=== PATIENT | female | born 1980 | race Caucasian/White ===

== ENCOUNTER 2018-10-13 07:01 | Day surgery (SDC) | payer BC ==
--- NOTE | 2018-10-05 07:02 | HP ---
CC: Dr. Matt * PREOPERATIVE HISTORY AND PHYSICAL: DATE OF ADMISSION/SURGERY: 10/13/18 This patient is scheduled for same-day surgery admission by Dr. Alegria on Tuesday , 10/13/18. DATE OF PREOPERATIVE HISTORY AND PHYSICAL EXAMINATION: 10/04/18. ATTENDING SURGEON: Dr. Amy Alegria * (dictated by Catherine Clement NP). CHIEF COMPLAINT: Left breast mass. HISTORY OF PRESENT ILLNESS: The patient is a 38-year-old female, who had her initial consultation with Dr. Alegria, 06/13/18, after she was referred by her primary care provider, Dr. Matt, who thought there might be a lump in the left breast. The patient had not noticed any breast changes at that time, but reported pain in her left breast ever since. She had excision of 2 benign lesions in 2006. The pathology on the previous excisions were consistent with fibroadenoma and fibrocystic change. She underwent mammogram 06/19/18, which revealed a solid nodule in the left breast; she also underwent ultrasound- guided biopsy of the left breast lesion at the 6 o'clock position in July 2018 with findings suggestive of Phyllodes tumor and therefore surgical excision with margins was recommended. She denies any change in the shape or texture of the left breast and she denies any nipple discharge. She has never had radiation to the chest. There is no family history of breast or ovarian cancer. She was on control pills about 10 years ago. She was aged 11 with her first menstrual period and her last menstrual period started 09/24/18. Dr. Alegria has reviewed all of the findings with the patient and has recommended needle localization excision of the left breast lesion as a same- day surgery procedure. She described the nature of the surgical procedure, the rationale for the procedure, the relevant risks and benefits, and today I reviewed the typical postoperative care and recovery. The patient has had a chance to ask questions and stated that she understands the information and is satisfied with the answers given to her questions. She will sign surgical consent on the day of surgery. PAST MEDICAL HISTORY: Anxiety and depression; migraine headaches. PAST SURGICAL HISTORY: Excision of 2 benign left breast masses in [address] Alegria, urethra was widened in 1984, and recently she had tooth extraction. OB HISTORY: 0. Last menstrual period started 09/24/18. MEDICATIONS: 1. Vitamin B12 one tablet daily. 2. Vitamin D3 one tablet daily. 3. Fish oil supplement b.i.d.. 4. Multivitamin daily. 5. Alprazolam 1 mg one-half to 1 tablet b.i.d. p.r.n. 6. Melatonin at bedtime. 7. Acetaminophen 325 mg p.r.n. 8. Magnesium 500 mg daily. 9. Probiotic daily. 10. Vitamin A daily. 11. Vitamin E daily. 12. Vitamin B6 daily. She also takes zinc, selenium, chromium, dandelion root, and spearmint extract. ALLERGIES: No known drug allergies; she prefers not to take ibuprofen. FAMILY HISTORY: No known breast or ovarian cancer; father is with a history of kidney cancer, hypertension, heart disease, diabetes, and stroke. Mother is alive with a history of hypertension, kidney disease, and bleeding tendencies. SOCIAL HISTORY: She is and is a massage therapist; she has never been a smoker and denies the use of alcohol or other substances. REVIEW OF SYSTEMS: Constitutional: No fevers, chills, excessive fatigue, or weight loss. Endocrine: No diabetes or thyroid disease. Hematologic: No history of blood transfusions. She states that she had excessive bleeding after her tooth extraction recently. Breasts: As described in history of present illness, abnormal left breast mass. Respiratory: No dyspnea on exertion. No chronic cough. Cardiovascular: No anginal chest pain or palpitations. Gastrointestinal: No nausea, vomiting, diarrhea, GI bleeding, or constipation. Genitourinary: No dysuria. Musculoskeletal: Normal. No back or joint pain. Integumentary: Normal. No chronic rashes or skin changes. Neurologic: Normal. No headache, blurred vision, or areas of focal weakness. General: No history of deep vein thrombosis or pulmonary embolism. No previous anesthesia complications. PHYSICAL EXAMINATION GENERAL SURVEY: The patient is a 38-year-old female, well-developed, well- nourished, in no acute distress. VITAL SIGNS: Height 71 inches, weight 182 pounds, body mass index 25.4. Blood pressure 126/68, pulse 72 and regular, respiratory rate 16, temperature 97.8 tympanic. HEENT: Benign. NECK: Supple. No cervical lymphadenopathy. No supraclavicular lymphadenopathy. LUNGS: Breath sounds bilaterally clear and equal. BREASTS: Symmetric; surgical scars noted in the left breast; no skin dimpling or nipple retraction; palpation of the left breast reveals no discrete masses; there is some nodularity and the tissue in the region of the scar at the inferior areola is thickened but no discrete mass; palpation of the right breast reveals no discrete masses, no axillary adenopathy. HEART: Regular rate and rhythm. No murmurs or rubs appreciated. ABDOMEN: Soft, nontender throughout. No obvious masses or organomegaly. PELVIC: Exam is deferred. RECTAL: Exam is deferred. She is up-to-date with Pap smear. EXTREMITIES: Warm without edema or skin ulceration. NEUROLOGIC: Alert and oriented x3. Steady gait. SKIN: Warm, dry, intact. IMPRESSION: Left breast lesion, sonographic density, question Phyllodes tumor. PLAN: Same-day surgery admission to Dr. Alegria's service on 10/13/18, for needle localization excision of left breast sonographic density. LENORE CLEMENT, CALL CENTER SPECIALIST [id number]/[facility] #: [id number] AKILAH
[~2018-10-13 07:01] MED LIST: Buffered Lidocaine 0.9% SYRIN* 5 ML/SYR SYRINGE INTRADERM ONE; Lactated Ringers 1000 ML Bag* 1,000 ML IV SCH
[2018-10-13] MEDS ORDERED: ceFAZolin 2 GM PREMIX in ORs 2 GM/50 ML BAG IVPB ONE (07:20)
[2018-10-13] MEDS ORDERED: Lidocaine 2.5%/Prilocain 2.5%* 5 GM TUBE ONE (07:20)
[2018-10-13] MEDS ORDERED: Bupivacaine 0.5% PF 10 ML VIAL INJ ONE (09:17)
[2018-10-13] MEDS ORDERED: Bupivacaine 0.5% W/EPI SDV* 30 ML VIAL ONE (09:17)
[2018-10-13] MEDS ORDERED: Lidocaine 1% INJ* 10 MG/ML 30 ML SDV ONE (09:17)
[2018-10-13] MEDS ORDERED: Midazolam* 1 MG/ML 2 ML VIAL (2 MG) ONE (09:39)
[2018-10-13] MEDS ORDERED: fentaNYL* 50 MCG/ML 2 ML VIAL (100 MCG VIAL) ONE (09:39)
[2018-10-13] MEDS ORDERED: Propofol* 10 MG/ML 20 ML BTL ONE (09:43)
[2018-10-13] MEDS ORDERED: Lidocaine 2% PF * 5 ML VIAL ONE (09:44)
[2018-10-13] MEDS ORDERED: Naloxone* 0.4 MG/ML 1 ML VIAL IV PRN (10:16)
--- NOTE | 2018-10-13 10:57 | BRIEFOPN ---
Brief Operative Note - Surgery Procedures: Procedures CLOSURE SKIN & SUBCUTANEOUS NEC (10/18/13) TETANUS ANTITOXIN ADMINI (10/18/13) 10/13/18 Op Note Pre-op dx: left breast mass Post-op dx: same Procedure: needle localization excision of left breast mass Surgeon: Raji Asst: none Anesth: local-MAC EBL: 5 cc complications: none Abx: given pre-op SCDs on during surgery Pt. tolerated procedure well and was transferred to in a stable condition. CLFoster
[2018-10-13] MEDS ORDERED: oxyCODONE/Acetamin 5/325 MG* TAB PO PRN ×2 (10:59)
[2018-10-13 11:04] VITALS: BP 115/75
--- NOTE | 2018-10-14 05:43 | OP ---
CC: Dr. Mert Matt * DATE OF OPERATION: 10/13/18 - [facility] DATE OF : 78 SURGEON: Amy Alegria MD. INSURANCE MARKETING SPECIALIST: There was no workforce development assistant for this case. PRE-OP DIAGNOSIS: Left breast mass. POST-OP DIAGNOSIS: Left breast mass. OPERATIVE PROCEDURE: Needle localization and excision of left breast mass. INDICATIONS: This patient is a 38-year-old woman, recently identified as having a lump in the left breast, thought to possibly be a phyllodes tumor, and plans were therefore made for surgical excision. DESCRIPTION OF PROCEDURE: She was brought to the operating room, placed on the OR table in the supine position and given IV sedation. The left breast was prepped and draped in the usual sterile fashion, taking care not to dislodge the localizing wire, which had been placed earlier in the day. After infiltrating with local anesthetic, a curvilinear and circumareolar incision was made following the previous scar. The subcutaneous tissue was divided with electrocautery directly posteriorly until the wire was encountered. This was then withdrawn through the skin, so as to emerge from the wound. Tissue was grasped and excised from the breast using electrocautery, so as to remove the massive tissue from around the wire. This was marked in the usual fashion and handed off as a specimen. The report eventually came back from Radiology that the specimen did contain the lesion, which was close to the edge, but meanwhile hemostasis was achieved with electrocautery. The wound was irrigated with saline. Additional local was instilled into the wound and closure was accomplished with 3-0 Vicryl in the subcutaneous layer, and the skin was closed with 4-0 Prolene in a subcuticular fashion. Steri-Strips and a dry sterile dressing were applied. All sponge and instrument counts were correct. The patient tolerated the procedure well and was transferred to Recovery in a stable condition. [id number]/[facility] #: [id number] [facility] HOSPITALNancy
== END 2018-10-13 11:26 | disposition home or self-care (01) ==
LOC: OR 07:01
PROVIDERS: ATTEND Surgery
DX: N63.20 Unspecified lump in the left breast, unspecified quadrant (principal); F41.8 Other specified anxiety disorders; R51 Headache
CPT/HCPCS: 36415; 77061; 84702; 88307; A9270-GY; G0279; J0690; J2250; J2704; J3010